=== PATIENT | male | born 1980 | race Caucasian/White ===

== ENCOUNTER → 2019-10-19 | Day surgery (SDC) | payer BC ==
[~2019-10-19] VITALS: Ht 182.8 cm; Wt 108.9 kg
[~2019-10-19] MED LIST: NORCO 5-325 TA1 EACH PO
--- NOTE | ~2019-10-19 | PROC NOTE ---
[place], [place] PROCEDURE NOTE NAME: [facility] #: [id number] UNIT #: [id number] ROOM: DOCTOR: OLGA BLACKMAN MD BIRTHDATE: [birth year] DOS: 10/19/2019 PREOPERATIVE DIAGNOSIS: Left leg, back cysts x 2. POSTOPERATIVE DIAGNOSIS: Left leg, back cysts x 2. PROCEDURE: Excision of left leg, back cysts x 2. SURGEON: Olga Blackman MD TEACHER PUBLIC HEALTH: DANIS. ANESTHESIA: Local. INDICATIONS: This is a 38-year-old gentleman with a history of cyst on his left leg and 2 cysts on his back, who is here for the above-mentioned procedure. The procedure and its complications were explained to the patient in detail preoperatively. Complications that were discussed included but were not limited to bleeding, infection, hematoma/seroma/abscess formation, prolonged pain, and damage to lying vital structures. He agreed to proceed. DESCRIPTION OF PROCEDURE: After identifying the patient, the patient was brought to the operating suite and laid in the supine position. After time-out procedure was called, the left leg was prepped and draped in the usual sterile fashion. An elliptical incision was marked. Local anesthesia was infiltrated and an incision was made and deepened in layers. The lesion and the overlying elliptical part of the skin was excised in its entirety with the help of electrocautery and sent for histopathological diagnosis. After sutures were used to properly orient the specimen (long stitch for lateral, short stitch for superior), the specimen was sent for histopathological diagnosis. Hemostasis was achieved with the help of electrocautery. Thereafter, the subcutaneous tissue was irrigated and approximated with the help of 3-0 Vicryl in an interrupted fashion and the skin edges were then approximated with the help of 2-0 nylon in an interrupted fashion. The patient was then turned in a prone position and the parts were then painted and draped in the usual sterile fashion. Both the cystic areas were identified and elliptical incision was made in the transverse fashion in both areas and local anesthesia was infiltrated in both the areas as well. The left side was dealt with first. The elliptical incision was made with the help of a knife and deepened with the help of electrocautery. The cyst was then excised in its entirety and sent for histopathological diagnosis. Hemostasis was achieved. The subcutaneous tissue was irrigated and approximated with the help of 3-0 Vicryl in an interrupted fashion and the skin edges were approximated with the help of 2-0 nylon in an interrupted fashion as well. Dressing was placed. The right back cyst was tackled next. The incision was marked and local anesthesia was infiltrated in the elliptical incision. Incision was made with the help of a knife and deepened with the help of electrocautery. The cyst was excised in its entirety and sent for histopathological diagnosis. Hemostasis was achieved and the subcutaneous tissue was irrigated and approximated with the help of 3-0 Vicryl in an interrupted fashion and the edges of the skin were approximated with the [place], [place] [facility]: [id number] UNIT #: [id number] ROOM: DOCTOR: OLGA BLACKMAN MD BIRTHDATE: [birth year] help of 2-0 nylon in an interrupted fashion as well. Dressings were placed. The patient tolerated the procedure well and was brought back to the recovery room in stable fashion. There were no complications. Dr. Olga Blackman, the attending surgeon, was present throughout the operating case. Olga Blackman MD CM:PROCNOTE:PROCEDURE NOTE 1020 [id number] OLGA BLACKMAN MD
[2019-10-19 08:31] VITALS: BP 130/74
[2019-10-19 09:10] VITALS: BP 134/86
[2019-10-19 09:25] VITALS: BP 132/86
[2019-10-19 09:40] VITALS: BP 124/82
[2019-10-19 09:55] VITALS: BP 118/68
== END | disposition home or self-care (01) ==
LOC: SDC 10-16 13:15
DX: L72.0 Epidermal cyst (principal); D21.22 Benign neoplasm of connective and other soft tissue of left lower limb, including hip; J45.909 Unspecified asthma, uncomplicated